=== PATIENT | male | born 1985 | race Caucasian/White ===

== ENCOUNTER 2023-06-22 08:07 | Emergency (ER) | payer MEDICAID, SELFPAY ==
[2023-06-22 08:11] VITALS: BP 155/98; PULSE 68; RESP 18; TEMP 36.9; O2SAT 98; BMI 25.8
--- NOTE | 2023-06-22 08:13 | W.ED.NEUROSD ---
HPI - Neuro Symptoms/Deficit General: Chief Complaint: Weakness Stated Complaint: left side face and arm numb Time Seen by Provider: 06/22/23 08:08 Source: patient Mode of arrival: ambulatory Limitations: no limitations History of Present Illness: 37-year-old male who states he has been having paresthesias to his left arm and face he states been going on off and on for the last year. He states it started again this morning states that this feels tingly on that side he denies any decrease sensation he had no slurred speech no vision changes denies any weakness he denies any chest pain or neck pain. Associated symptoms: Deny chest pain, headache(s), nausea or vomiting Review of Systems Const: Denies: fever(s), chills, body aches or change in appetite Eyes: Denies: blurry vision or eye discomfort ENMT: Denies: throat pain or dental pain Card: Denies: chest pain Resp: Denies: dyspnea GI: Denies: abdominal pain, nausea, vomiting or diarrhea Musc: Denies: neck pain or back pain Skin/Breast: Denies: rash Neuro: Reports: numbness in extremities; Denies: headache(s) PFSH ED PFSH: Medical History Psychiatric care NIH stroke score NIHSS: Level Of Consciousness - 1a: 0 Level Of Consciousness Questions - 1b: Both Correct Level Of Consciousness Commands - 1c: Both Correct Best Gaze - 2: Normal Visual [place] - 3: No Visual Loss Facial Palsy - 4: Normal Motor Arm Right - 5: No Drift Motor Arm Left - 5: No Drift Motor Leg Right - 6: No Drift Motor Leg Left - 6: No Drift Limb Ataxia - 7: Absent Sensory - 8: Normal Best Language - 9: No Aphasia Dysarthia - 10: Normal Extinction And Inattention - 11: 0 Score: Total Score: 0 Physical Exam Const: COMMON NORMALS: no acute distress, patient oriented x3 and healthy appearing HENMT: COMMON NORMALS: normocephalic and atraumatic HEAD & SCALP: normocephalic and atraumatic Eye: COMMON NORMALS: Equal, round and reactive pupils present and EOMs intact bilaterally PUPIL: Yes Equal, round and reactive pupils present Neck/C-Spine: COMMON NORMALS: full ROM and supple Chest: COMMONS NORMALS: normal inspection of the chest and normal palpation of entire chest wall Resp: COMMON NORMALS: normal respiratory effort, No retractions, No use of accessory muscles and clear to auscultation bilaterally AUSCULTATION: clear to auscultation bilaterally Cardio: COMMON NORMALS: regular rate, regular rhythm and No murmurs present (Cardio) RATE: regular rate RHYTHM: regular rhythm Extremity: COMMON NORMALS: normal to inspection and full ROM Neuro: COMMON NORMALS: patient oriented x3, moves all extremities and no focal motor deficits CRANIAL NERVES: Yes CN normal except as noted SPEECH: speech normal GAIT: Yes Normal gait present SENSORY EXAM: Yes extremities MOTOR EXAM: 5/5 motor strength present throughout Psych: COMMON NORMALS: mental status grossly normal, Normal thought process present and cooperative THOUGHT PROCESS: Normal thought process present Skin: COMMON NORMALS: no rashes or lesions noted and no wounds GENERAL SKIN EXAM: no rashes or lesions noted Course Vital Signs: Vital signs: Vital Signs Temperature 98.4 F 06/22/23 08:11 Pulse Rate 74 06/22/23 08:21 Respiratory Rate 19 H 06/22/23 08:21 Blood Pressure 145/85 06/22/23 08:21 Pulse Oximetry 98 06/22/23 08:21 Oxygen Delivery Me thod Room Air 06/22/23 08:21 MDM - Neuro Symptoms/Deficit Medical Decision Making Patient presents here with paresthesias going on for year he has no signs of a stroke he is well-appearing here blood work here is normal he is stable for discharge she is to follow-up with his PCP and return if worsening. Medical Records I reviewed the patient's medical records. Lab Data I reviewed the patient's lab results. 06/22/23 08:23 06/22/23 08:23 Laboratory Results WBC 5.45 10^3/uL (3.29-11.43) 06/22/23 08:23 RBC 4.90 10^6/uL (3.85-5.65) 06/22/23 08:23 Hgb 16.00 g/dL (11.27-16.99) 06/22/23 08:23 Hct 45.6 % (37-53) 06/22/23 08:23 MCV 93.1 fl (82-101) 06/22/23 08:23 MCH 32.7 pg (27-33) 06/22/23 08:23 MCHC 35.1 g/dL (30-55) 06/22/23 08: RDW 12.6 % (12.1-15.1) 06/22/23 08: Plt Count 336 10^3/cmm (157-399) 06/22/23 08: MPV 9.9 fL (7.4-10.4) 06/22/23 08: Neut % (Auto) 50.9 % 06/22/23 08: Lymph % (Auto) 38.3 % 06/22/23 08:23 Shannon % (Auto) 7.3 % 06/22/23 08: Eos % (Auto) 2.2 % 06/22/23 08: Baso % (Auto) 1.3 % 06/22/23 08: Neut # (Auto) 2.77 10^3/uL (1.8-7.7) 06/22/23 08: Lymph # (Auto) 2.1 10^3/uL (0.8-4.8) 06/22/23 08: Shannon # (Auto) 0.4 10^3/uL (0.2-0.9) 06/22/23 08: Eos # (Auto) 0.1 10^3/uL (0.0-0.8) 06/22/23 08: Baso # (Auto) 0.1 10^3/uL (0.0-0.1) 06/22/23 08: Nucleated RBC % (auto) 0 % 06/22/23 08: Nucleated RBCs # 0.0 /100WBC 06/22/23 08: Sodium 140 mmol/L (136-145) 06/22/23 08:23 Potassium 4.1 mmol/L (3.5-5.1) 06/22/23 08: Chloride 104 mmol/L (98-107) 06/22/23 08: Carbon Dioxide 26 mmol/L (22-29) 06/22/23 08: Anion Gap 14.1 (5-19) 06/22/23 08:23 BUN 10 mg/dL (6-20) 06/22/23 08: Creatinine 0.6 mg/dL (0.7-1.2) L 06/22/23 08:23 GFR Calculation 153.3 mL/min (90-130) H 06/22/23 08:23 Glucose 94 mg/dL (65-115) 06/22/23 08:23 Calculated Osmolality 289 mOsm/kg (285-295) 06/22/23 08:23 Calcium 9.5 mg/dL (8.5-10.5) 06/22/23 08:23 No radiology studies performed this visit EKG Data EKG 1: I personally reviewed and interpreted this EKG as follows: EKG interpretation date: 06/22/23 EKG interpretation time: 08:17 Interpretation: nsr hr [address] or t wave abnormalities qrs 122 qtc 416 Discharge Plan Discharge Patient Disposition: Home Clinical Impression: Paresthesia Condition: Stable Prescriptions: No Action fluoxetine 20 mg capsule 20 mg PO DAILY Qty: 30 1RF permethrin 5 % cream 1 applic topical Q7D Qty: 60 0RF Rx Instructions: apply second treatment 7 days after first treatment ivermectin 3 mg tablet 15 mg PO Q9D Qty: 10 0RF Discharge Orders: Discharge ED (Routine); Ordered 06/22/23 Ordered By: Noemi Gonzales Referrals: Rylie Sprague DO [Primary Care Provider] - 1-3 days Discharge Diet: Advance as tolerated Discharge Activity: Resume usual activity Patient Instructions: Paresthesia (ED) Coding Level of Care Code ED Emergency Management Coordinator for Eric Santos
--- NOTE | 2023-06-22 08:17 | ECG_ITS ---
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 Measurements Intervals [place] Rate: 76 P: 25 ND: 157 QRS: 23 QRSD: 122 T: 32 QT: 386 QTc: 435 Interpretive Statements SINUS RHYTHM POSSIBLE RIGHT VENTRICULAR CONDUCTION DELAY [RSR (QR) IN V1/V2] No previous ECG available for comparison Electronically Signed On 06-22-2023 8:43:58 CDT by Marck Burris M.D. [email or web address]
[2023-06-22 08:21] VITALS: BP 145/85; PULSE 74; RESP 19; O2SAT 98
[2023-06-22 08:29] LABS: Basophils # 0.1 10^3/uL (0.0-0.1); Basophils % 1.3 %; Eosinophils # 0.1 10^3/uL (0.0-0.8); Eosinophils % 2.2 %; Hematocrit 45.6 % (37-53); Lymphocytes # 2.1 10^3/uL (0.8-4.8); Lymphocytes % 38.3 %; Mean Corpuscular HGB Conc 35.1 g/dL (30-55); Mean Corpuscular Hemoglobin 32.7 pg (27-33); Mean Corpuscular Volume 93.1 fl (82-101); Mean Platelet Volume 9.9 fL (7.4-10.4); Monocytes # 0.4 10^3/uL (0.2-0.9); Monocytes % 7.3 %; Neutrophils # 2.77 10^3/uL (1.8-7.7); Neutrophils % 50.9 %; Nucleated Red Blood Cells % 0 %; Platelet Count 336 10^3/cmm (157-399); Red Cell Distribution Width 12.6 % (12.1-15.1); White Blood Count 5.45 10^3/uL (3.29-11.43)
[2023-06-22 08:51] LABS: Anion Gap 14.1 (5-19); Blood Urea Nitrogen 10 mg/dL (6-20); Calcium 9.5 mg/dL (8.5-10.5); Carbon Dioxide 26 mmol/L (22-29); Chloride 104 mmol/L (98-107); Glomerular Filtration Rate 153.3 mL/min (90-130); Glucose 94 mg/dL (65-115); Osmolality Calculated 289 mOsm/kg (285-295); Potassium 4.1 mmol/L (3.5-5.1); Sodium 140 mmol/L (136-145)
== END 2023-06-22 09:19 | disposition home or self-care (01) ==
PROVIDERS: Emergency Provider Emergency Medicine; PCP Family Medicine
DX: R20.2 Paresthesia of skin (principal)
CPT/HCPCS: 36415; 80048; 85025; 93005; 99284